=== PATIENT | female | born 1935 | race Caucasian/White ===

== ENCOUNTER 2017-01-28 23:06 | Inpatient (IN) | payer MEDICARE, MEDICAID ==
[~2017-01-28] VITALS: Ht 152.4 cm; Wt 56.7 kg
[~2017-01-28 23:06] MED LIST: PROP80CA2 PO
[2017-01-28 23:53] LABS: BASOPHILS % 0.8 % (0.0-2.0); EOSINOPHILS % 0.7 % (0.0-5.0); HEMATOCRIT. 36.3 % (36.0-48.0); HEMOGLOBIN. 12.6 g/dL (12.0-16.0); LYMPHOCYTES % 18.3 % (20.0-50.0); MEAN CORPUSCULAR VOLUME 86.6 fL (81.0-99.0); MEAN PLATELET VOLUME 7.8 fl (7.4-10.4); MONOCYTES % 6.4 % (2.0-8.0); NEUTROPHILS % 73.8 % (40.0-76.0); PLATELET 349 x1000/uL (130-400); RED BLOOD CELL COUNT 4.19 mill/uL (4.2-5.4); RED CELL DISTRIBUTION WIDTH 13.7 % (11.6-14.6)
[2017-01-29] LABS: PROTHROMBIN TIME 10.8 sec (9.4-11.6)
[2017-01-29 00:12] LABS: CARBON DIOXIDE 24 mEq/L (21-32); CHLORIDE 101 mEq/L (98-107); ETHANOL BLOOD < 10 mg/dL; LDL CHOLESTEROL 175 mg/dL (5-100); TROPONIN I < 0.02 ng/mL (0.00-0.04)
[2017-01-29] MEDS ORDERED: DEXTROSE 50% WATER 50ML SYRINGE IV PRN (04:00)
[2017-01-29] MEDS ORDERED: MAGNESIUM/ALUMINUM HYDROXIDE/SIMETHICONE 30ML UDC PO PRN (04:00)
[2017-01-29] MEDS ORDERED: ONDANSETRON HCL 4MG/2ML VIAL IV PRN (04:00)
[2017-01-29] MEDS ORDERED: ACETAMINOPHEN 325MG TABLET PO PRN (04:00)
[2017-01-29] MEDS ORDERED: DIPHENHYDRAMINE 50MG/ML VIAL IV PRN (04:00)
[2017-01-29] MEDS: INSULIN LISPRO 100 UNITS/ML SUBCUT SCH ×4 (08:20→20:09)
[2017-01-29] MEDS: CLONIDINE 0.1MG TABLET PO PRN ×2 (08:31→20:08)
[2017-01-29] MEDS: SODIUM CHLORIDE 0.9% INJ 3ML FLUSH IVF SCH ×3 (08:31→20:09)
[2017-01-29 09:00] VITALS: BP 137/45
[2017-01-29] MEDS: BLOOD SUGAR DIAGNOSTIC STRIP TEST SCH ×4 (09:16→20:09)
[2017-01-29 12:00] VITALS: BP 176/74
[2017-01-29 12:43] VITALS: BP 135/45
[2017-01-29] MEDS ORDERED: ALOPURINOL PO (13:09)
[2017-01-29] MEDS ORDERED: ATOR20TA65 PO (13:09)
[2017-01-29] MEDS ORDERED: OMEP20CA10 PO (13:09)
[2017-01-29] MEDS ORDERED: BEZAFIBRATO PO (13:10)
[2017-01-29 15:54] VITALS: BP 171/61
[2017-01-29] MEDS ORDERED: PNEUMOCOCCAL 23-VAL P-SAC VAC 0.5 ML IM ONE (16:00)
[2017-01-29] MEDS: ASPIRIN 325MG EC TABLET PO SCH ×2 (18:00→18:23)
[2017-01-29] MEDS: AMLODIPINE 2.5MG TABLET PO SCH (18:23)
[2017-01-29 20:00] VITALS: BP_SYST 129; BP_SYST 191; BP_DIAS 39; BP_DIAS 72
[2017-01-29] MEDS: LEVETIRACETAM 500MG TABLET PO SCH (20:08)
[2017-01-30] VITALS: BP 129/39
[2017-01-30 04:00] VITALS: BP 132/37
[2017-01-30] MEDS: SODIUM CHLORIDE 0.9% INJ 3ML FLUSH IVF SCH ×3 (06:00→20:36)
[2017-01-30] MEDS: INSULIN LISPRO 100 UNITS/ML SUBCUT SCH (07:15)
[2017-01-30] MEDS: BLOOD SUGAR DIAGNOSTIC STRIP TEST SCH (07:27)
[2017-01-30 08:00] VITALS: BP 133/45
[2017-01-30] MEDS: LEVETIRACETAM 500MG TABLET PO SCH ×2 (09:00→09:42)
[2017-01-30] MEDS: AMLODIPINE 2.5MG TABLET PO SCH (09:42)
[2017-01-30] MEDS: ASPIRIN 325MG EC TABLET PO SCH (09:42)
[2017-01-30] MEDS: OMEPRAZOLE 20MG CAPSULE EXTENDED RELEASE PO SCH ×2 (09:43→20:24)
[2017-01-30 12:00] VITALS: BP 139/58
[2017-01-30] MEDS ORDERED: BISACODYL 5MG TABLET PO PRN (14:30)
[2017-01-30] MEDS: DOCUSATE SODIUM 100MG CAPSULE PO SCH ×2 (14:30→20:23)
[2017-01-30 16:00] VITALS: BP 136/54
[2017-01-30 20:00] VITALS: BP 173/79
[2017-01-30] MEDS: LEVETIRACETAM 250MG TABLET PO SCH (20:24)
[2017-01-30] MEDS: CLONIDINE 0.1MG TABLET PO PRN (20:26)
[2017-01-30] MEDS ORDERED: ATORVASTATIN CALCIUM 20MG TABLET PO SCH (21:00)
[2017-01-31] VITALS: BP 123/66
[2017-01-31 04:00] VITALS: BP 125/75
[2017-01-31] MEDS: SODIUM CHLORIDE 0.9% INJ 3ML FLUSH IVF SCH ×2 (06:20→13:24)
[2017-01-31] MEDS: OMEPRAZOLE 20MG CAPSULE EXTENDED RELEASE PO SCH (06:20)
[2017-01-31 08:00] VITALS: BP 121/48
[2017-01-31] MEDS: ASPIRIN 325MG EC TABLET PO SCH (11:16)
[2017-01-31] MEDS: AMLODIPINE 2.5MG TABLET PO SCH (11:17)
[2017-01-31] MEDS: DOCUSATE SODIUM 100MG CAPSULE PO SCH ×2 (11:17→17:00)
[2017-01-31] MEDS: LEVETIRACETAM 250MG TABLET PO SCH (11:26)
[2017-01-31 12:00] VITALS: BP 153/51
[2017-01-31 18:11] VITALS: BP 172/52
== END 2017-01-31 19:02 | DRG 65 ==
LOC: ER 23:07 → ENRESERV 01-29 06:54 → 5WST 01-29 06:54
PROVIDERS: ADMIT Internal Medicine; ATTEND Internal Medicine
PROC: 4A00X4Z Measurement of Central Nervous Electrical Activity, External Approach (ICD-10-PCS; principal; 2017-01-30)
DX: I63.9 Cerebral infarction, unspecified (principal); I50.32 Chronic diastolic (congestive) heart failure; G40.909 Epilepsy, unspecified, not intractable, without status epilepticus; I10 Essential (primary) hypertension; E78.00 Pure hypercholesterolemia, unspecified; Z90.49 Acquired absence of other specified parts of digestive tract; Z79.899 Other long term (current) drug therapy
CPT/HCPCS: 36415; 70450; 70551; 71010; 80053; 80061; 82962; 83036; 83721; 83880; 84484; 85025; 85610; 90732; 93005; 93880; 93970; 96360; 97110; 97116; 97162; 97530; 99285; G0482

== ENCOUNTER 2017-01-31 19:05 | Inpatient (IN) | payer MEDICARE, MEDICAID ==
[~2017-01-31] VITALS: Ht 152.4 cm; Wt 59.0 kg
[~2017-01-31 19:05] MED LIST changes: +ALOPURINOL PO; +ATOR20TA65 PO; +BEZAFIBRATO PO; +OMEP20CA10 PO
[2017-01-31 20:00] VITALS: BP 187/68
[2017-01-31] MEDS ORDERED: ONDANSETRON HCL 4MG/2ML VIAL IV PRN (20:15)
[2017-01-31] MEDS ORDERED: DIPHENHYDRAMINE 50MG/ML VIAL IV PRN (20:15)
[2017-01-31] MEDS ORDERED: MAGNESIUM/ALUMINUM HYDROXIDE/SIMETHICONE 30ML UDC PO PRN (20:15)
[2017-01-31] MEDS: LEVETIRACETAM 250MG TABLET PO SCH (21:21)
[2017-01-31] MEDS: OMEPRAZOLE 20MG CAPSULE EXTENDED RELEASE PO SCH (21:21)
[2017-01-31] MEDS: ATORVASTATIN CALCIUM 20MG TABLET PO SCH (21:21)
[2017-01-31] MEDS: CLONIDINE 0.1MG TABLET PO PRN (21:22)
[2017-01-31] MEDS ORDERED: SODIUM CHLORIDE 0.9% INJ 3ML FLUSH IVF SCH (22:00)
[2017-02-01 08:00] VITALS: BP 162/66
[2017-02-01] MEDS: LEVETIRACETAM 250MG TABLET PO SCH ×2 (09:00→20:16)
[2017-02-01] MEDS: ASPIRIN 325MG EC TABLET PO SCH (09:59)
[2017-02-01] MEDS: DOCUSATE SODIUM 100MG CAPSULE PO SCH ×2 (09:59→17:49)
[2017-02-01] MEDS: OMEPRAZOLE 20MG CAPSULE EXTENDED RELEASE PO SCH (10:00)
[2017-02-01] MEDS: AMLODIPINE 2.5MG TABLET PO SCH (10:00)
[2017-02-01] MEDS: CLONIDINE 0.1MG TABLET PO PRN ×2 (12:13→20:17)
[2017-02-01 20:00] VITALS: BP 184/60
[2017-02-01] MEDS: ATORVASTATIN CALCIUM 20MG TABLET PO SCH (20:17)
[2017-02-01] MEDS: FAMOTIDINE 20MG TABLET PO SCH (20:17)
[2017-02-01 22:45] VITALS: BP 150/55
[2017-02-02 08:00] VITALS: BP 126/63
[2017-02-02] MEDS: LEVETIRACETAM 250MG TABLET PO SCH ×2 (09:00→21:24)
[2017-02-02] MEDS: ASPIRIN 325MG EC TABLET PO SCH (09:56)
[2017-02-02] MEDS: FAMOTIDINE 20MG TABLET PO SCH ×2 (09:56→21:24)
[2017-02-02] MEDS: AMLODIPINE 2.5MG TABLET PO SCH (09:56)
[2017-02-02] MEDS: DOCUSATE SODIUM 100MG CAPSULE PO SCH ×2 (09:56→17:08)
[2017-02-02 20:00] VITALS: BP 105/60
[2017-02-02] MEDS: ATORVASTATIN CALCIUM 20MG TABLET PO SCH (21:24)
[2017-02-03 08:00] VITALS: BP 181/66
[2017-02-03] MEDS: LEVETIRACETAM 250MG TABLET PO SCH ×2 (09:00→22:59)
[2017-02-03] MEDS: FAMOTIDINE 20MG TABLET PO SCH ×2 (11:07→22:58)
[2017-02-03] MEDS: AMLODIPINE 2.5MG TABLET PO SCH (11:07)
[2017-02-03] MEDS: ASPIRIN 325MG EC TABLET PO SCH (11:07)
[2017-02-03] MEDS: DOCUSATE SODIUM 100MG CAPSULE PO SCH ×2 (11:07→17:20)
[2017-02-03] MEDS: BISACODYL 5MG TABLET PO PRN (11:08)
[2017-02-03] MEDS: ACETAMINOPHEN 325MG TABLET PO PRN ×2 (11:09→17:19)
[2017-02-03] MEDS: CLONIDINE 0.1MG TABLET PO PRN (15:01)
[2017-02-03 16:00] VITALS: BP 175/53
[2017-02-03 17:00] VITALS: BP 229/86
[2017-02-03] MEDS ORDERED: CLONIDINE 0.1MG TABLET PO NR (17:28)
[2017-02-03 18:30] VITALS: BP 135/56
[2017-02-03 19:00] VITALS: BP 137/66
[2017-02-03] MEDS: ATORVASTATIN CALCIUM 20MG TABLET PO SCH (22:58)
[2017-02-04] MEDS: ACETAMINOPHEN 325MG TABLET PO PRN (02:12)
[2017-02-04] MEDS: CLONIDINE 0.1MG TABLET PO PRN ×2 (05:17→20:30)
[2017-02-04 08:00] VITALS: BP 148/64
[2017-02-04] MEDS: PROPRANOLOL HCL 20MG TABLET PO SCH ×2 (08:58→20:31)
[2017-02-04] MEDS: LEVETIRACETAM 250MG TABLET PO SCH ×2 (09:00→20:30)
[2017-02-04] MEDS: DOCUSATE SODIUM 100MG CAPSULE PO SCH ×2 (09:04→17:44)
[2017-02-04] MEDS: AMLODIPINE 2.5MG TABLET PO SCH (09:05)
[2017-02-04] MEDS: ASPIRIN 325MG EC TABLET PO SCH (09:05)
[2017-02-04] MEDS: FAMOTIDINE 20MG TABLET PO SCH ×2 (09:05→20:30)
[2017-02-04 20:00] VITALS: BP 185/54
[2017-02-04] MEDS: ATORVASTATIN CALCIUM 20MG TABLET PO SCH (20:30)
[2017-02-04 21:40] VITALS: BP 173/65
[2017-02-05 00:22] VITALS: BP 125/74
[2017-02-05 08:00] VITALS: BP 120/68
[2017-02-05] MEDS: AMLODIPINE 5MG TABLET PO SCH (10:20)
[2017-02-05] MEDS: DOCUSATE SODIUM 100MG CAPSULE PO SCH ×2 (10:21→17:58)
[2017-02-05] MEDS: BISACODYL 5MG TABLET PO PRN (10:21)
[2017-02-05] MEDS: FAMOTIDINE 20MG TABLET PO SCH ×2 (10:21→20:44)
[2017-02-05] MEDS: LEVETIRACETAM 250MG TABLET PO SCH ×4 (10:21→20:44)
[2017-02-05] MEDS: ASPIRIN 325MG EC TABLET PO SCH (10:21)
[2017-02-05 20:00] VITALS: BP 127/64
[2017-02-05] MEDS: ATORVASTATIN CALCIUM 20MG TABLET PO SCH (20:44)
[2017-02-06] MEDS: ACETAMINOPHEN 325MG TABLET PO PRN ×2 (04:52→21:27)
[2017-02-06 08:00] VITALS: BP 133/44
[2017-02-06] MEDS: DOCUSATE SODIUM 100MG CAPSULE PO SCH ×2 (09:29→17:55)
[2017-02-06] MEDS: FAMOTIDINE 20MG TABLET PO SCH ×2 (09:29→21:21)
[2017-02-06] MEDS: ASPIRIN 325MG EC TABLET PO SCH (09:29)
[2017-02-06] MEDS: LEVETIRACETAM 250MG TABLET PO SCH ×2 (09:32→21:20)
[2017-02-06] MEDS: AMLODIPINE 5MG TABLET PO SCH (09:32)
[2017-02-06 20:00] VITALS: BP 165/60
[2017-02-06] MEDS: ATORVASTATIN CALCIUM 20MG TABLET PO SCH (21:20)
[2017-02-06] MEDS: CLONIDINE 0.1MG TABLET PO PRN (21:21)
[2017-02-06 23:01] VITALS: BP 112/46
[2017-02-07 08:00] VITALS: BP 164/60
[2017-02-07] MEDS: ASPIRIN 325MG EC TABLET PO SCH (09:00)
[2017-02-07] MEDS: FAMOTIDINE 20MG TABLET PO SCH ×2 (09:00→20:54)
[2017-02-07] MEDS: DOCUSATE SODIUM 100MG CAPSULE PO SCH ×2 (09:00→16:24)
[2017-02-07] MEDS: AMLODIPINE 5MG TABLET PO SCH (09:00)
[2017-02-07] MEDS: LEVETIRACETAM 250MG TABLET PO SCH ×2 (09:00→20:54)
[2017-02-07] MEDS: ACETAMINOPHEN 325MG TABLET PO PRN (16:28)
[2017-02-07 20:00] VITALS: BP 182/63
[2017-02-07] MEDS: ATORVASTATIN CALCIUM 20MG TABLET PO SCH (20:54)
[2017-02-07] MEDS: CLONIDINE 0.1MG TABLET PO PRN (20:54)
[2017-02-07 22:30] VITALS: BP 147/54
[2017-02-08 08:00] VITALS: BP 155/56
[2017-02-08] MEDS: FAMOTIDINE 20MG TABLET PO SCH ×2 (08:35→20:25)
[2017-02-08] MEDS: ASPIRIN 325MG EC TABLET PO SCH (08:35)
[2017-02-08] MEDS: LEVETIRACETAM 250MG TABLET PO SCH ×2 (08:35→20:25)
[2017-02-08] MEDS: AMLODIPINE 5MG TABLET PO SCH (08:35)
[2017-02-08] MEDS: DOCUSATE SODIUM 100MG CAPSULE PO SCH ×2 (08:35→17:12)
[2017-02-08 20:00] VITALS: BP 176/60
[2017-02-08] MEDS: ATORVASTATIN CALCIUM 20MG TABLET PO SCH (20:24)
[2017-02-08] MEDS: CLONIDINE 0.1MG TABLET PO PRN (20:25)
[2017-02-08 22:00] VITALS: BP 158/58
[2017-02-09 08:00] VITALS: BP 154/64
[2017-02-09] MEDS ORDERED: LOSARTAN POTASSIUM 25 MG TABLET PO SCH (09:00)
[2017-02-09] MEDS: DOCUSATE SODIUM 100MG CAPSULE PO SCH ×2 (10:33→17:24)
[2017-02-09] MEDS: AMLODIPINE 5MG TABLET PO SCH (10:33)
[2017-02-09] MEDS: LEVETIRACETAM 250MG TABLET PO SCH ×2 (10:33→20:26)
[2017-02-09] MEDS: ASPIRIN 325MG EC TABLET PO SCH (10:34)
[2017-02-09] MEDS: FAMOTIDINE 20MG TABLET PO SCH ×2 (10:34→20:26)
[2017-02-09 20:00] VITALS: BP 178/62
[2017-02-09] MEDS: ATORVASTATIN CALCIUM 20MG TABLET PO SCH (20:26)
[2017-02-09] MEDS: CLONIDINE 0.1MG TABLET PO PRN (20:26)
[2017-02-09] MEDS: ACETAMINOPHEN 325MG TABLET PO PRN (21:34)
[2017-02-09 22:30] VITALS: BP 159/49
[2017-02-10 06:37] LABS: EOSINOPHILS % 3.7 % (0.0-5.0); HEMATOCRIT. 34.5 % (36.0-48.0); HEMOGLOBIN. 11.7 g/dL (12.0-16.0); LYMPHOCYTES % 31.3 % (20.0-50.0); MEAN CORPUSCULAR HEMOGLOBIN 29.7 pg (28.0-32.0); MEAN CORPUSCULAR VOLUME 87.7 fL (81.0-99.0); MEAN PLATELET VOLUME 8.7 fl (7.4-10.4); MONOCYTES % 11.5 % (2.0-8.0); NEUTROPHILS % 52.5 % (40.0-76.0); PLATELET 281 x1000/uL (130-400); RED BLOOD CELL COUNT 3.93 mill/uL (4.2-5.4); RED CELL DISTRIBUTION WIDTH 13.1 % (11.6-14.6)
[2017-02-10 06:46] LABS: CARBON DIOXIDE 26 mEq/L (21-32); CHLORIDE 99 mEq/L (98-107)
[2017-02-10 08:00] VITALS: BP 130/37
[2017-02-10] MEDS: DOCUSATE SODIUM 100MG CAPSULE PO SCH ×2 (08:55→17:17)
[2017-02-10] MEDS: LEVETIRACETAM 250MG TABLET PO SCH ×2 (08:55→21:17)
[2017-02-10] MEDS: ASPIRIN 325MG EC TABLET PO SCH (08:55)
[2017-02-10] MEDS: FAMOTIDINE 20MG TABLET PO SCH ×2 (08:55→21:17)
[2017-02-10 09:50] VITALS: BP 140/63
[2017-02-10] MEDS: LOSARTAN POTASSIUM 25 MG TABLET PO SCH (10:00)
[2017-02-10] MEDS: AMLODIPINE 5MG TABLET PO SCH (10:00)
[2017-02-10 20:00] VITALS: BP 150/56
[2017-02-10] MEDS: ATORVASTATIN CALCIUM 20MG TABLET PO SCH (21:17)
[2017-02-11 08:00] VITALS: BP 157/71
[2017-02-11] MEDS: AMLODIPINE 5MG TABLET PO SCH (08:34)
[2017-02-11] MEDS: FAMOTIDINE 20MG TABLET PO SCH ×2 (08:35→20:43)
[2017-02-11] MEDS: LEVETIRACETAM 250MG TABLET PO SCH ×2 (08:35→20:43)
[2017-02-11] MEDS: DOCUSATE SODIUM 100MG CAPSULE PO SCH ×2 (08:35→16:27)
[2017-02-11] MEDS: ASPIRIN 325MG EC TABLET PO SCH (08:35)
[2017-02-11] MEDS: LOSARTAN POTASSIUM 25 MG TABLET PO SCH (08:35)
[2017-02-11] MEDS: ACETAMINOPHEN 325MG TABLET PO PRN (14:55)
[2017-02-11 20:00] VITALS: BP 170/71
[2017-02-11] MEDS: ATORVASTATIN CALCIUM 20MG TABLET PO SCH (20:43)
[2017-02-11] MEDS: CLONIDINE 0.1MG TABLET PO PRN (20:43)
[2017-02-11] MEDS: TEMAZEPAM 15MG CAPSULE PO SCH (22:26)
[2017-02-12 08:00] VITALS: BP 152/51
[2017-02-12] MEDS: DOCUSATE SODIUM 100MG CAPSULE PO SCH ×2 (10:40→17:03)
[2017-02-12] MEDS: ASPIRIN 325MG EC TABLET PO SCH (10:40)
[2017-02-12] MEDS: LOSARTAN POTASSIUM 25 MG TABLET PO SCH (10:41)
[2017-02-12] MEDS: FAMOTIDINE 20MG TABLET PO SCH ×2 (10:42→20:26)
[2017-02-12] MEDS: LEVETIRACETAM 250MG TABLET PO SCH ×2 (10:43→20:26)
[2017-02-12] MEDS: AMLODIPINE 10MG TABLET PO SCH (10:43)
[2017-02-12 20:00] VITALS: BP 163/57
[2017-02-12] MEDS: ATORVASTATIN CALCIUM 20MG TABLET PO SCH (20:26)
[2017-02-12] MEDS: CLONIDINE 0.1MG TABLET PO PRN (20:26)
[2017-02-12] MEDS: TEMAZEPAM 15MG CAPSULE PO SCH (23:00)
[2017-02-13 07:56] VITALS: BP 146/71
[2017-02-13] MEDS: FAMOTIDINE 20MG TABLET PO SCH ×2 (09:00→21:53)
[2017-02-13] MEDS: LOSARTAN POTASSIUM 100 MG TABLET PO SCH (09:01)
[2017-02-13] MEDS: DOCUSATE SODIUM 100MG CAPSULE PO SCH ×2 (09:01→17:00)
[2017-02-13] MEDS: LEVETIRACETAM 250MG TABLET PO SCH ×2 (09:01→21:53)
[2017-02-13] MEDS: ASPIRIN 325MG EC TABLET PO SCH (09:01)
[2017-02-13] MEDS: AMLODIPINE 10MG TABLET PO SCH (09:01)
[2017-02-13 20:00] VITALS: BP 105/79
[2017-02-13] MEDS: ATORVASTATIN CALCIUM 20MG TABLET PO SCH (21:53)
[2017-02-13] MEDS: TEMAZEPAM 15MG CAPSULE PO SCH (22:44)
[2017-02-14 08:00] VITALS: BP 126/70
[2017-02-14] MEDS: LOSARTAN POTASSIUM 100 MG TABLET PO SCH (08:40)
[2017-02-14] MEDS: DOCUSATE SODIUM 100MG CAPSULE PO SCH ×2 (08:40→17:05)
[2017-02-14] MEDS: LEVETIRACETAM 250MG TABLET PO SCH ×2 (08:40→21:13)
[2017-02-14] MEDS: FAMOTIDINE 20MG TABLET PO SCH (08:40)
[2017-02-14] MEDS: ASPIRIN 325MG EC TABLET PO SCH (08:40)
[2017-02-14] MEDS: AMLODIPINE 10MG TABLET PO SCH (08:41)
[2017-02-14 15:07] LABS: GLUCOSE URINE NEGATIVE (NEGATIVE); KETONES URINE NEGATIVE (NEGATIVE); LEUKOCYTE ESTERASE URINE 3+ (NEGATIVE); NITRITE URINE POSITIVE (NEGATIVE); OCCULT BLOOD URINE TRACE (NEGATIVE); PH URINE 5.5 (4.5-8.0); PROTEIN URINE NEGATIVE (NEGATIVE); SPECIFIC GRAVITY URINE 1.011 (1.005-1.030); UROBILINOGEN URINE 0.2 E.U./dL (0.2-1.0)
[2017-02-14 15:11] LABS: CLARITY URINE CLOUDY (CLEAR); COLOR URINE YELLOW (YELLOW)
[2017-02-14] MEDS: LEVOFLOXACIN 250MG TABLET PO SCH (17:06)
[2017-02-14 20:00] VITALS: BP 140/50
[2017-02-14] MEDS: ATORVASTATIN CALCIUM 20MG TABLET PO SCH (21:13)
[2017-02-14] MEDS: TEMAZEPAM 15MG CAPSULE PO SCH (22:30)
[2017-02-15 07:30] LABS: BASOPHILS % 1.2 % (0.0-2.0); EOSINOPHILS % 4.2 % (0.0-5.0); HEMATOCRIT. 35.9 % (36.0-48.0); HEMOGLOBIN. 12.2 g/dL (12.0-16.0); LYMPHOCYTES % 36.2 % (20.0-50.0); MEAN CORPUSCULAR HEMOGLOBIN 29.9 pg (28.0-32.0); MEAN PLATELET VOLUME 8.2 fl (7.4-10.4); MONOCYTES % 11.8 % (2.0-8.0); NEUTROPHILS % 46.6 % (40.0-76.0); PLATELET 307 x1000/uL (130-400); RED BLOOD CELL COUNT 4.08 mill/uL (4.2-5.4); RED CELL DISTRIBUTION WIDTH 13.4 % (11.6-14.6)
[2017-02-15 07:59] LABS: CARBON DIOXIDE 28 mEq/L (21-32); CHLORIDE 100 mEq/L (98-107); HDL CHOLESTEROL 55 mg/dL (40-59); LDL CHOLESTEROL 76 mg/dL (5-100); TOTAL IRON BINDING CAPACITY 259 ug/dL (250-450)
[2017-02-15 08:00] VITALS: BP 137/52
[2017-02-15 09:40] LABS: FOLIC ACID (FOLATE) SERUM 8.2 ng/mL (>5.38)
[2017-02-15] MEDS: DOCUSATE SODIUM 100MG CAPSULE PO SCH ×2 (10:24→16:52)
[2017-02-15] MEDS: ASPIRIN 325MG EC TABLET PO SCH (10:25)
[2017-02-15] MEDS: LOSARTAN POTASSIUM 100 MG TABLET PO SCH (10:25)
[2017-02-15] MEDS: LEVETIRACETAM 250MG TABLET PO SCH ×2 (10:26→21:03)
[2017-02-15] MEDS: FAMOTIDINE 20MG TABLET PO SCH (10:27)
[2017-02-15] MEDS: AMLODIPINE 10MG TABLET PO SCH (10:27)
[2017-02-15] MEDS: LEVOFLOXACIN 250MG TABLET PO SCH (11:44)
[2017-02-15 20:00] VITALS: BP 108/69
[2017-02-15] MEDS: ATORVASTATIN CALCIUM 20MG TABLET PO SCH (21:03)
[2017-02-15] MEDS: TEMAZEPAM 15MG CAPSULE PO SCH (22:13)
[2017-02-16 07:53] VITALS: BP 138/48
[2017-02-16] MEDS: DOCUSATE SODIUM 100MG CAPSULE PO SCH ×2 (09:33→16:42)
[2017-02-16] MEDS: LOSARTAN POTASSIUM 100 MG TABLET PO SCH (09:34)
[2017-02-16] MEDS: FAMOTIDINE 20MG TABLET PO SCH (09:34)
[2017-02-16] MEDS: AMLODIPINE 10MG TABLET PO SCH (09:34)
[2017-02-16] MEDS: LEVETIRACETAM 250MG TABLET PO SCH ×2 (09:35→21:15)
[2017-02-16] MEDS: ASPIRIN 325MG EC TABLET PO SCH (09:35)
[2017-02-16] MEDS: LEVOFLOXACIN 250MG TABLET PO SCH (11:08)
[2017-02-16 20:00] VITALS: BP 190/83
[2017-02-16] MEDS: CLONIDINE 0.1MG TABLET PO PRN (20:04)
[2017-02-16 21:00] VITALS: BP 134/70
[2017-02-16] MEDS: TEMAZEPAM 15MG CAPSULE PO SCH (21:15)
[2017-02-16] MEDS: ATORVASTATIN CALCIUM 20MG TABLET PO SCH (21:15)
[2017-02-17 07:53] VITALS: BP 150/58
[2017-02-17] MEDS: ASPIRIN 325MG EC TABLET PO SCH (09:21)
[2017-02-17] MEDS: LEVETIRACETAM 250MG TABLET PO SCH ×2 (09:21→20:07)
[2017-02-17] MEDS: FAMOTIDINE 20MG TABLET PO SCH (09:21)
[2017-02-17] MEDS: DOCUSATE SODIUM 100MG CAPSULE PO SCH ×2 (09:21→18:14)
[2017-02-17] MEDS: LOSARTAN POTASSIUM 100 MG TABLET PO SCH (09:21)
[2017-02-17] MEDS: AMLODIPINE 10MG TABLET PO SCH (09:22)
[2017-02-17] MEDS: LEVOFLOXACIN 250MG TABLET PO SCH (12:20)
[2017-02-17 19:00] VITALS: BP 160/41
[2017-02-17 19:50] VITALS: BP 160/41
[2017-02-17] MEDS: ATORVASTATIN CALCIUM 20MG TABLET PO SCH (20:07)
[2017-02-17] MEDS: TEMAZEPAM 15MG CAPSULE PO PRN (21:24)
[2017-02-17 21:45] VITALS: BP 121/63
[2017-02-18 08:00] VITALS: BP 151/53
[2017-02-18] MEDS: FAMOTIDINE 20MG TABLET PO SCH (09:37)
[2017-02-18] MEDS: AMLODIPINE 10MG TABLET PO SCH (09:38)
[2017-02-18] MEDS: ASPIRIN 325MG EC TABLET PO SCH (09:38)
[2017-02-18] MEDS: DOCUSATE SODIUM 100MG CAPSULE PO SCH ×2 (09:38→17:25)
[2017-02-18] MEDS: LOSARTAN POTASSIUM 100 MG TABLET PO SCH (09:38)
[2017-02-18] MEDS: LEVETIRACETAM 250MG TABLET PO SCH ×2 (09:38→21:09)
[2017-02-18] MEDS: LEVOFLOXACIN 250MG TABLET PO SCH (12:03)
[2017-02-18 20:00] VITALS: BP 169/62
[2017-02-18] MEDS: ATORVASTATIN CALCIUM 20MG TABLET PO SCH (21:09)
[2017-02-18] MEDS: CLONIDINE 0.1MG TABLET PO PRN (21:09)
[2017-02-18 22:36] VITALS: BP 145/46
[2017-02-18] MEDS: TEMAZEPAM 15MG CAPSULE PO PRN (22:37)
[2017-02-19 07:56] VITALS: BP 144/54
[2017-02-19 08:02] LABS: EOSINOPHILS % 3.4 % (0.0-5.0); HEMATOCRIT. 34.6 % (36.0-48.0); HEMOGLOBIN. 11.7 g/dL (12.0-16.0); LYMPHOCYTES % 31.8 % (20.0-50.0); MEAN CORPUSCULAR HEMOGLOBIN 29.7 pg (28.0-32.0); MEAN CORPUSCULAR VOLUME 87.9 fL (81.0-99.0); MEAN PLATELET VOLUME 8.4 fl (7.4-10.4); MONOCYTES % 10.1 % (2.0-8.0); NEUTROPHILS % 53.7 % (40.0-76.0); PLATELET 273 x1000/uL (130-400); RED BLOOD CELL COUNT 3.94 mill/uL (4.2-5.4)
[2017-02-19 08:16] LABS: CARBON DIOXIDE 24 mEq/L (21-32); CHLORIDE 102 mEq/L (98-107)
[2017-02-19] MEDS: LOSARTAN POTASSIUM 100 MG TABLET PO SCH (09:00)
[2017-02-19] MEDS: LEVETIRACETAM 250MG TABLET PO SCH ×2 (09:01→20:34)
[2017-02-19] MEDS: AMLODIPINE 10MG TABLET PO SCH (09:01)
[2017-02-19] MEDS: ASPIRIN 325MG EC TABLET PO SCH (09:01)
[2017-02-19] MEDS: DOCUSATE SODIUM 100MG CAPSULE PO SCH ×2 (09:01→16:43)
[2017-02-19] MEDS: FAMOTIDINE 20MG TABLET PO SCH (09:01)
[2017-02-19] MEDS: LEVOFLOXACIN 250MG TABLET PO SCH (11:12)
[2017-02-19 20:00] VITALS: BP 150/53
[2017-02-19] MEDS: ATORVASTATIN CALCIUM 20MG TABLET PO SCH (20:34)
[2017-02-19] MEDS: TEMAZEPAM 15MG CAPSULE PO PRN (23:11)
[2017-02-20 07:40] VITALS: BP 120/60
[2017-02-20] MEDS: BISACODYL 5MG TABLET PO PRN (09:42)
[2017-02-20] MEDS: DOCUSATE SODIUM 100MG CAPSULE PO SCH ×2 (09:42→16:57)
[2017-02-20] MEDS: LEVETIRACETAM 250MG TABLET PO SCH ×2 (09:42→20:06)
[2017-02-20] MEDS: LOSARTAN POTASSIUM 100 MG TABLET PO SCH (09:42)
[2017-02-20] MEDS: ASPIRIN 325MG EC TABLET PO SCH (09:42)
[2017-02-20] MEDS: FAMOTIDINE 20MG TABLET PO SCH (09:42)
[2017-02-20] MEDS: AMLODIPINE 10MG TABLET PO SCH (09:42)
[2017-02-20] MEDS: LEVOFLOXACIN 250MG TABLET PO SCH (10:14)
[2017-02-20 15:11] LABS: 25-HYDROXY VITAMIN D3 21 ng/mL (.)
[2017-02-20 20:00] VITALS: BP 123/81
[2017-02-20] MEDS: ATORVASTATIN CALCIUM 20MG TABLET PO SCH (20:06)
[2017-02-20 21:18] VITALS: BP 162/58
[2017-02-20] MEDS: CLONIDINE 0.1MG TABLET PO PRN (21:18)
[2017-02-20 23:00] VITALS: BP 121/40
[2017-02-20] MEDS: TEMAZEPAM 15MG CAPSULE PO PRN (23:14)
[2017-02-21 07:52] VITALS: BP 150/44
[2017-02-21] MEDS: ASPIRIN 325MG EC TABLET PO SCH (10:23)
[2017-02-21] MEDS: DOCUSATE SODIUM 100MG CAPSULE PO SCH (10:23)
[2017-02-21] MEDS: AMLODIPINE 10MG TABLET PO SCH (10:23)
[2017-02-21] MEDS: LOSARTAN POTASSIUM 100 MG TABLET PO SCH (10:23)
[2017-02-21] MEDS: LEVETIRACETAM 250MG TABLET PO SCH (10:23)
[2017-02-21] MEDS: LEVOFLOXACIN 250MG TABLET PO SCH (10:23)
[2017-02-21] MEDS: FAMOTIDINE 20MG TABLET PO SCH (10:23)
[2017-02-21 11:44] VITALS: BP 150/44
== END 2017-02-21 12:53 | disposition home or self-care (01) | DRG 65 ==
PROVIDERS: ADMIT Psychiatry & Neurology Neurology; ATTEND Internal Medicine
DX: I63.9 Cerebral infarction, unspecified (principal); N39.0 Urinary tract infection, site not specified; R56.9 Unspecified convulsions; D64.9 Anemia, unspecified; R47.01 Aphasia; E78.00 Pure hypercholesterolemia, unspecified; S00.93XA Contusion of unspecified part of head, initial encounter; F01.50 Vascular dementia, unspecified severity, without behavioral disturbance, psychotic disturbance, mood disturbance, and anxiety; I11.9 Hypertensive heart disease without heart failure; E78.5 Hyperlipidemia, unspecified; F39 Unspecified mood [affective] disorder; G31.84 Mild cognitive impairment of uncertain or unknown etiology; F06.31 Mood disorder due to known physiological condition with depressive features; Z90.49 Acquired absence of other specified parts of digestive tract; Z79.899 Other long term (current) drug therapy
CPT/HCPCS: 36415; 80048; 80053; 80061; 81001; 82306; 82607; 82728; 82746; 83540; 83550; 84443; 84630; 85025; 87077; 87086; 87186; 92523; 97110; 97112; 97116; 97162; 97167; 97530; 97535; A6261